=== PATIENT | female | born 1995 | race Caucasian/White ===

== ENCOUNTER → 2017-04-29 | Outpatient (REF) | LOC: WSOH 13:43 | DX: Z02.89 Encounter for other administrative examinations (principal) ==

== ENCOUNTER → 2017-05-21 | Outpatient (REF) | LOC: WSOH 10:56 | DX: Z02.1 Encounter for pre-employment examination (principal) ==

== ENCOUNTER → 2017-05-23 | Outpatient (REF) | LOC: WSOH 12:00 | DX: Z02.89 Encounter for other administrative examinations (principal) ==